=== PATIENT | female | born 1990 | race Caucasian/White ===

== ENCOUNTER 2016-11-12 10:26 | Emergency (ER) | payer OTHER ==
[2016-11-12 10:34] VITALS: RESP 16; TEMP 97.5
--- NOTE | 2016-11-12 11:16 | EDPHY ---
H & P Time Seen by Provider: 11/12/16 10:53 HPI/ROS: CHIEF COMPLAINT: Left hand burn HISTORY OF PRESENT ILLNESS: Patient is a 26-year-old female who presents to the emergency department with a blister on her left hand. 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 Her hand began blistering. She popped it and drained on numerous occasions. She would wrap it in a glove for work. She is concerned that she now has an infection as blister is getting worse. She has mild pain. No discomfort in her wrist or arm. No fevers or chills. No numbness or tingling. REVIEW OF SYSTEMS: My complete review of systems is negative except as mentioned in the HPI. Past Medical/Surgical History: Negative Past surgical history: Noncontributory Smoking Status: Current every day smoker Physical Exam: General Appearance: Alert and no distress. Head: Pupils equal. Normal. Respiratory: No respiratory distress. Cardiac: regular rate and rhythm. Extremities: the patient has a blister on her left greater thenar eminence. This appears to be fluctuant. There is no significant surrounding erythema. There is no swelling of the hand. No streaking up the arm. Neurovascular intact distally. Skin: No rashes or lesions. Neuro: Alert. Normal mood and affect. Constitutional: Initial Vital Signs Temperature (C) 36.4 C 11/12/16 10:29 Heart Rate 91 11/12/16 10:29 Respiratory Rate 16 11/12/16 10:29 Blood Pressure 127/105 H 11/12/16 10:29 O2 Sat (%) 93 11/12/16 10:29 O2 Delivery Mode Room Air Allergies/Adverse Reactions: No Known Allergies Allergy (Unverified 11/12/16 10:34) Home Medications: Medication Instructions Recorded Cephalexin [Keflex (*)] 500 mg PO QID 5 Days 11/12/16 Medical Decision Making Procedures: Blister I&D. Indication: Blister from a burn. There is fluctuance under the blister. This has been progressing. Patient was anesthetized with 1% lidocaine. Using 11 blade blister was unroofed. The area was clean. There is no pus discharge. Bacitracin was applied and a clean dressing was placed. ED Course/Re-evaluation: The in the emergency department I discussed possible etiologies with the patient. I answered all her questions. She consented to local anesthesia and I &D. Patient's wound was cleaned and dressed. She was given warnings prior to leaving. She was placed on a course of antibiotics. Differential Diagnosis: My differential includes but is not limited to partial-thickness burn, full- thickness burn, abscess, cellulitis, foreign body Departure - Departure Disposition: Home, Routine, Self-Care Clinical Impression: Partial thickness burn, Left hand Condition: Good Instructions: Second Degree Burn (ED), Acute Wounds (ED) Additional Instructions: Keep the wound clean and dry. Apply antibiotic cream. Return with increasing pain, swelling, redness or other concerns. Referrals: [facility] [Clinic] - 5-7 days, if not improved Prescriptions: Cephalexin [Keflex (*)] 500 mg PO QID 5 Days
[2016-11-12 12:19] VITALS: BP 114/99; PULSE 94; O2SAT 94
== END 2016-11-12 12:10 | disposition home or self-care (01) ==
PROC: 0H9GXZZ Drainage of Left Hand Skin, External Approach (ICD-10-PCS; principal; 2016-11-12)
DX: T23.202A Burn of second degree of left hand, unspecified site, initial encounter (principal); F17.200 Nicotine dependence, unspecified, uncomplicated; X58.XXXA Exposure to other specified factors, initial encounter; Y92.511 Restaurant or cafe as the place of occurrence of the external cause; Y99.0 Civilian activity done for income or pay; Y93.89 Activity, other specified